=== PATIENT | male | born 1960 | race Caucasian/White ===

== ENCOUNTER 2017-08-15 06:53 | Outpatient (CLI) | payer OTHER ==
[2017-08-15 07:26] LABS: ADD MAN DIFF? NO
[2017-08-15 07:38] LABS: BASO % 1 % (0-3); EOS # 0.2 x10^3/uL (0.0-0.7); EOS % 5 % (0-3); HEMATOCRIT 44.1 % (39.0-53.0); HEMOGLOBIN 15.3 g/dL (13.0-17.5); LYMPH # 1.1 x10^3/uL (1.0-4.8); LYMPH % 24 % (24-48); MEAN CORPUSCULAR HEMOGLOBIN 32 pg (25-35); MEAN CORPUSCULAR HGB CONC 35 g/dL (31-37); MEAN CORPUSCULAR VOLUME 93 fL (79-100); MONO # 0.8 x10^3/uL (0.0-1.1); MONO % 17 % (0-9); NEUT # 2.4 x10^3uL (1.8-7.7); NEUT % 52 % (31-73); PLATELET COUNT 132 x10^3/uL (140-400); RED BLOOD COUNT 4.72 x10^6/uL (4.30-5.70); RED CELL DISTRIBUTION WIDTH 12.7 % (11.5-14.5); WHITE BLOOD COUNT 4.5 x10^3/uL (4.0-11.0)
[2017-08-15 07:46] LABS: PARTIAL THROMBOPLASTIN TIME 24 SEC (24-38); PROTHROMBIN TIME PATIENT 12.9 SEC (11.7-14.0)
[2017-08-15] MEDS ORDERED: LIDOCAINE WITH 8.4% SOD BICARB 3 ML DISP.SYRIN. ×2 (07:54)
[2017-08-15] MEDS ORDERED: MIDAZOLAM HCL/PF 2 MG/2 ML VIAL. ×2 (08:00)
[2017-08-15] MEDS ORDERED: fentaNYL PF VIAL 100 MCG/2 ML VIAL ×2 (08:01)
[2017-08-15] MEDS: LIDOCAINE WITH 8.4% SOD BICARB 3 ML DISP.SYRIN. IJ ×2 (08:25)
[2017-08-15] MEDS: fentaNYL PF VIAL 100 MCG/2 ML VIAL IV ×2 (08:26)
[2017-08-15] MEDS: MIDAZOLAM HCL/PF 2 MG/2 ML VIAL. IV ×2 (08:26)
== END 2017-08-15 10:00 | disposition home or self-care (01) ==
LOC: INTRAD 06:53
DX: D47.2 Monoclonal gammopathy (principal); E78.00 Pure hypercholesterolemia, unspecified; I10 Essential (primary) hypertension; F41.9 Anxiety disorder, unspecified; F32.9 Major depressive disorder, single episode, unspecified; Z72.89 Other problems related to lifestyle
CPT/HCPCS: 36415; 38222; 77012; 85025; 85610; 85730; 88184; 88185; 88237; 88305; 88311; 88313; 88341; 88342; 88364; 88365; 99152; J2250; J3010

== ENCOUNTER → 2019-12-09 | Outpatient (CLI) | payer OTHER ==
[2017-08-15 09:32] VITALS: BP 126/65
[~2019-12-09] MED LIST: ASPI-482 PO; ATOR40TA59 PO; LISI10TA2 PO; OMEG1CAP38 PO
[2019-12-09 19:24] LABS: BASO % 1 % (0-3); EOS # 0.2 x10^3/uL (0.0-0.7); EOS % 2 % (0-3); HEMOGLOBIN 15.9 g/dL (13.0-17.5); LYMPH # 1.7 x10^3/uL (1.0-4.8); LYMPH % 25 % (24-48); MEAN CORPUSCULAR HEMOGLOBIN 33 pg (25-35); MEAN CORPUSCULAR HGB CONC 35 g/dL (31-37); MEAN CORPUSCULAR VOLUME 94 fL (79-100); MONO # 0.7 x10^3/uL (0.0-1.1); MONO % 10 % (0-9); NEUT # 4.1 x10^3/uL (1.8-7.7); NEUT % 62 % (31-73); PLATELET COUNT 165 x10^3/uL (140-400); RED BLOOD COUNT 4.82 x10^6/uL (4.30-5.70); RED CELL DISTRIBUTION WIDTH 12.6 % (11.5-14.5); WHITE BLOOD COUNT 6.6 x10^3/uL (4.0-11.0)
[2019-12-09 19:40] LABS: ALBUMIN 3.9 g/dL (3.4-5.0); ALBUMIN/GLOBULIN RATIO 1.1 (1.0-1.7); CALCIUM 8.7 mg/dL (8.5-10.1); CREATININE 1.1 mg/dL (0.7-1.3); GFR 68.3; TOTAL BILIRUBIN 0.5 mg/dL (0.2-1.0); TOTAL PROTEIN 7.6 g/dL (6.4-8.2)
[2019-12-12 12:09] LABS: KAPPA FREE 7.4 mg/L (3.3-19.4); KAPPA LAMBDA RATIO 0.32 (0.26-1.65); LAMBDA FREE 23.4 mg/L (5.7-26.3)
[2019-12-13 16:10] LABS: ALBUM 4.1 g/dL (2.9-4.4); ALPHA 1 0.2 g/dL (0.0-0.4); ALPHA 2 0.9 g/dL (0.4-1.0); BETA 0.9 g/dL (0.7-1.3); COMMENT IMMUNOFIX SERUM Note: (.); GAMMA 1.2 g/dL (0.4-1.8); IMMUNOGLOBULIN A 90 mg/dL (90-386); IMMUNOGLOBULIN G 1294 mg/dL (603-1613); IMMUNOGLOBULIN M 16 mg/dL (20-172); PROTEIN TOTAL 7.3 g/dL (6.0-8.5); SPEP AG RATIO 1.3 (0.7-1.7)
== END | disposition home or self-care (01) ==
LOC: LAB 18:50
PROVIDERS: ATTEND Family Medicine
DX: C82.90 Follicular lymphoma, unspecified, unspecified site (principal); D47.2 Monoclonal gammopathy
CPT/HCPCS: 36415; 80053; 82784; 83520; 84165; 85025; 86334